=== PATIENT | female | born 1985 | race Two or more races ===

== ENCOUNTER → 2019-01-09 | Outpatient (CLI) | payer OTHER ==
--- NOTE | 2019-01-09 14:00 | REP ---
Right knee five views : There is no fracture or dislocation. Mineralization and joint spaces are normal. There are no calcifications or foreign bodies. There is a joint effusion. Impression: Joint effusion, otherwise, negative right knee . Left knee five views : There is no fracture or dislocation. Mineralization and joint spaces are normal. There are no calcifications or foreign bodies. I suspect there is a small joint effusion. Impression: I suspect there is a small joint effusion, otherwise, negative left knee . Electronically Signed by Vikas Christiansen MD 01/09/2019 01:52 P
== END ==
LOC: M LRY 13:10
PROVIDERS: ATTEND Physician Assistant
DX: M25.461 Effusion, right knee (principal); M25.561 Pain in right knee; M25.562 Pain in left knee